=== PATIENT | male | born 1965 | race Caucasian/White ===

== ENCOUNTER → 2022-08-01 | Outpatient (CLI) | payer OTHER ==
--- NOTE | 2022-08-02 08:36 | MR ---
EXAMINATION TYPE: MR brain wo/w con DATE OF EXAM: 08/01/2022 COMPARISON: CT brain 11/11/2014 HISTORY: Left side hearing loss CONTRAST: Performed utilizing 7 mL intravenous Gadavist gadolinium contrast. TECHNIQUE: Multiplanar, multiecho imaging on a 3.0 Cherry magnet is performed through the brain. Stud y is performed within 24 hours of arrival to the hospital. The craniovertebral junction is normal. The pituitary is normal. Diffusion-weighted imaging is performed. No abnormal hyperintensity is present to suggest an acute i ntracranial infarct or acute ischemic change. There are couple of scattered white matter changes on inversion recovery, largest is in the left prox imal occipital lobe white matter measuring 0.3 cm. Findings are nonspecific. Differential diagnosis c ould include microvascular ischemic change, migraine headaches, vasculitis among other etiologies. No suspicious enhancement is evident. Ventricles and sulci are appropriate for the patient age. Mastoid air cells are clear. Paranasal sinuses are clear. IMPRESSIONS: 1. Unremarkable MRI brain. Couple of punctate white matter changes are present, not out of proportion to the patient's age.
== END | disposition home or self-care (01) ==
LOC: RADMRIMAIN 11:41
PROVIDERS: ATTEND Otolaryngology Otology & Neurotology
DX: H90.3 Sensorineural hearing loss, bilateral (principal)
CPT/HCPCS: 70553; A9585